=== PATIENT | female | born 1985 | race Caucasian/White ===

== ENCOUNTER 2022-09-28 13:18 | Outpatient (CLI) | payer OTHER | END 2022-09-28 13:21 | disposition home or self-care (01) | LOC: EDBD 13:18 → NUCLEAR 13:18 | PROVIDERS: ATTEND Internal Medicine Sports Medicine | DX: C73 Malignant neoplasm of thyroid gland (principal); E89.0 Postprocedural hypothyroidism | CPT/HCPCS: 79005; A9517 ==

== ENCOUNTER 2022-10-02 11:23 | Outpatient (CLI) | payer OTHER | END 2022-10-02 11:24 | disposition home or self-care (01) | LOC: NUCLEAR 11:23 | PROVIDERS: ATTEND Internal Medicine Sports Medicine | DX: C73 Malignant neoplasm of thyroid gland (principal); E89.0 Postprocedural hypothyroidism | CPT/HCPCS: 78015; 78830; A9531 ==